=== PATIENT | male | born 1960 | race Two or more races ===

== ENCOUNTER 2020-12-10 09:27 | Emergency (ER) | payer OTHER ==
[~2020-12-10] VITALS: Ht 175.3 cm; Wt 102.3 kg
[~2020-12-10 09:27] MED LIST: NO HOME MEDS
[2020-12-10] MEDS ORDERED: LIDOcaine 1% 30ml preserv. free vial IJ ONE (09:35)
[2020-12-10 09:38] VITALS: BP 180/101
[2020-12-10] MEDS ORDERED: TETanus/Pertussis (Acell)/Diphther VAC/PF (Tdap-Adult) 0.5ml syringe IMVAC ONE (09:40)
--- NOTE | 2020-12-10 09:50 | NUR ---
XRAY AT BEDSIDE.
[2020-12-10] MEDS ORDERED: ceFAZolin 1gm IM kit IM ONE (10:40)
[2020-12-10] MEDS ORDERED: HYDR-3965 PO (10:50)
[2020-12-10] MEDS ORDERED: CEPH-585 PO (10:50)
[2020-12-10] MEDS ORDERED: HYDROcodone/acetaminophen 5mg/325mg tablet PO ONE (10:50)
== END 2020-12-10 11:03 | disposition home or self-care (01) ==
LOC: ER 09:27
DX: S62.633B Displaced fracture of distal phalanx of left middle finger, initial encounter for open fracture (principal); Z79.2 Long term (current) use of antibiotics; Z79.899 Other long term (current) drug therapy; W22.8XXA Striking against or struck by other objects, initial encounter; Y93.89 Activity, other specified; Y92.89 Other specified places as the place of occurrence of the external cause; Y99.8 Other external cause status
CPT/HCPCS: 12001; 73140; 90471; 90715; 96372; 99284; J0690